=== PATIENT | female | born 1975 | race African-American/Black ===

== ENCOUNTER 2019-07-28 02:59 | Inpatient (IN) | payer MEDICARE, MEDICAID ==
[2019-07-28] VITALS: BP 108/58
[~2019-07-28] VITALS: Ht 175.3 cm; Wt 128.4 kg
[2019-07-28] MEDS ORDERED: ONDANSETRON HCL 4MG/2ML INJ IV STA (04:06)
[2019-07-28] MEDS ORDERED: MORPHINE SULFATE 4 MG/ML CPJ (NOT FOR IM USE) IV STA (04:06)
[2019-07-28] MEDS ORDERED: NITROGLYCERIN OINT 1GM/INCH UDPKT TD ONE (04:15)
[2019-07-28] MEDS ORDERED: ASPIRIN 81MG TABLET PO ONE (04:15)
[2019-07-28 04:40] LABS: BASOPHILS % 1.3 % (0.0-2.0); EOSINOPHILS % 4.4 % (0.0-5.0); HEMATOCRIT. 37.2 % (36.0-48.0); HEMOGLOBIN. 12.5 g/dL (12.0-16.0); LYMPHOCYTES % 36.3 % (20.0-50.0); MEAN CORPUSCULAR HEMOGLOBIN 29.6 pg (28.0-32.0); MEAN CORPUSCULAR VOLUME 87.7 fL (81.0-99.0); MEAN PLATELET VOLUME 7.5 fl (7.4-10.4); MONOCYTES % 8.6 % (2.0-8.0); NEUTROPHILS % 49.4 % (40.0-76.0); PLATELET 256 x1000/uL (130-400); RED BLOOD CELL COUNT 4.24 mill/uL (4.2-5.4); RED CELL DISTRIBUTION WIDTH 14.5 % (11.6-14.6)
[2019-07-28 04:47] LABS: CHLORIDE 109 mEq/L (98-107)
[2019-07-28] MEDS ORDERED: NITROGLYCERIN 0.4MG TABLET SL SL PRN (09:00)
[2019-07-28] MEDS ORDERED: ACETAMINOPHEN 325MG TABLET PO PRN (09:00)
[2019-07-28] MEDS ORDERED: ONDANSETRON HCL 4MG/2ML INJ IV PRN (09:00)
[2019-07-28] MEDS ORDERED: IOHEXOL-350 100 ML BOTTLE ONE (09:05)
[2019-07-28 09:28] LABS: CLARITY URINE CLEAR (CLEAR); COLOR URINE YELLOW (YELLOW); KETONES URINE NEGATIVE (NEGATIVE); LEUKOCYTE ESTERASE URINE NEGATIVE (NEGATIVE); NITRITE URINE NEGATIVE (NEGATIVE); OCCULT BLOOD URINE NEGATIVE (NEGATIVE); PH URINE 5.5 (4.5-8.0); PROTEIN URINE NEGATIVE (NEGATIVE); SPECIFIC GRAVITY URINE 1.038 (1.005-1.030); UROBILINOGEN URINE 0.2 E.U./dL (0.2-1.0)
[2019-07-28 09:42] LABS: LDL CHOLESTEROL 122 mg/dL (5-100)
[2019-07-28 09:43] LABS: HDL CHOLESTEROL 36 mg/dL (40-59)
[2019-07-28 09:59] LABS: *AMPHETAMINES SCREEN URINE NEGATIVE (NEGATIVE); *BARBITURATES SCREEN URINE NEGATIVE (NEGATIVE); *BENZODIAZEPINES SCREEN URINE NEGATIVE (NEGATIVE); *COCAINE SCREEN URINE NEGATIVE (NEGATIVE); METHADONE URINE SCREEN NEGATIVE (NEGATIVE)
[2019-07-28 10:00] LABS: CANNABINOID URINE SCREEN NEGATIVE (NEGATIVE); PHENCYCLIDINE URINE SCREEN NEGATIVE (NEGATIVE)
[2019-07-28 10:10] LABS: OPIATES URINE SCREEN PRESUMTIVE POSITIVE (NEGATIVE)
[2019-07-28 11:18] VITALS: BP 150/91
[2019-07-28 11:20] VITALS: BP 150/91
[2019-07-28] MEDS ORDERED: ASPIRIN 81MG TABLET PO SCH (12:00)
[2019-07-28] MEDS ORDERED: AMLODIPINE 5MG TABLET PO SCH (12:00)
[2019-07-28] MEDS ORDERED: ISOS5TAB4 MT (12:14)
[2019-07-28] MEDS ORDERED: ENAL5TAB MT (12:14)
[2019-07-28] MEDS ORDERED: HYDR-4134 MT (12:14)
[2019-07-28] MEDS ORDERED: ASPI-1160 MT (12:16)
[2019-07-28] MEDS ORDERED: CARV3.1242 MT (12:16)
[2019-07-28] MEDS ORDERED: FURO-152 MT (12:17)
[2019-07-28 15:19] VITALS: BP 157/92
[2019-07-28] MEDS ORDERED: FUROSEMIDE 20MG TABLET PO PRN (16:15)
[2019-07-28 17:50] VITALS: BP 163/100
[2019-07-28] MEDS: HYDRALAZINE HCL 25MG TABLET PO SCH (18:07)
[2019-07-28] MEDS: CLONIDINE 0.1MG TABLET PO PRN (18:08)
[2019-07-28 20:00] VITALS: BP 129/86
[2019-07-28] MEDS: CARVEDILOL 3.125 MG TABLET PO SCH (20:19)
[2019-07-28] MEDS: ISOSORBIDE DINITRATE 20MG TABLET PO SCH (20:20)
[2019-07-28] MEDS: KETOROLAC 30MG/ML VIAL IV PRN (20:27)
[2019-07-28] MEDS ORDERED: METOPROLOL TARTRATE 25MG TABLET PO SCH (21:00)
[2019-07-28] MEDS ORDERED: ATORVASTATIN CALCIUM 20MG TABLET PO SCH (21:00)
[2019-07-29] VITALS: BP 108/58
[2019-07-29 04:00] VITALS: BP 98/54
[2019-07-29] MEDS: KETOROLAC 30MG/ML VIAL IV PRN (06:45)
[2019-07-29 07:23] LABS: CHLORIDE 109 mEq/L (98-107)
[2019-07-29 07:32] LABS: BASOPHILS % 0.5 % (0.0-2.0); EOSINOPHILS % 4.7 % (0.0-5.0); HEMATOCRIT. 34.4 % (36.0-48.0); HEMOGLOBIN. 11.6 g/dL (12.0-16.0); LYMPHOCYTES % 37.4 % (20.0-50.0); MEAN CORPUSCULAR HEMOGLOBIN 29.3 pg (28.0-32.0); MEAN CORPUSCULAR VOLUME 87.3 fL (81.0-99.0); MEAN PLATELET VOLUME 7.3 fl (7.4-10.4); MONOCYTES % 9.9 % (2.0-8.0); NEUTROPHILS % 47.5 % (40.0-76.0); PLATELET 261 x1000/uL (130-400); RED BLOOD CELL COUNT 3.94 mill/uL (4.2-5.4); RED CELL DISTRIBUTION WIDTH 14.8 % (11.6-14.6)
[2019-07-29 07:32] LABS: LDL CHOLESTEROL 110 mg/dL (5-100)
[2019-07-29 07:34] LABS: CREATINE KINASE 123 IU/L (26-192)
[2019-07-29 07:35] LABS: HDL CHOLESTEROL 34 mg/dL (40-59)
[2019-07-29 07:42] LABS: CREATINE KINASE MB FRACTION < 1.0 ng/mL (0.5-3.6)
[2019-07-29] MEDS ORDERED: HYDROCODONE/ACETAMINOPHEN 5/325MG TABLET PO PRN (07:45)
[2019-07-29 07:57] VITALS: BP 137/67
[2019-07-29] MEDS: HYDRALAZINE HCL 25MG TABLET PO SCH (07:58)
[2019-07-29] MEDS: CARVEDILOL 3.125 MG TABLET PO SCH (07:59)
[2019-07-29] MEDS: ISOSORBIDE DINITRATE 20MG TABLET PO SCH (07:59)
[2019-07-29] MEDS ORDERED: ASPIRIN 81MG TABLET PO SCH (09:00)
[2019-07-29] MEDS ORDERED: ENALAPRIL 5MG TABLET PO SCH (09:00)
[2019-07-29] MEDS: CLONIDINE 0.1MG TABLET PO PRN (14:28)
[2019-07-29 14:31] VITALS: BP 160/80
== END 2019-07-29 15:25 | disposition home or self-care (01) | DRG 313 ==
LOC: ER 03:18 → EDBEDREQTM 05:22 → EDBEDREQ 05:22 → 5WST 05:54 → EDBEDREQ 06:01 → ENRESERV 10:39 → CANRESERV 10:39 → ENRESERV 10:47
PROVIDERS: ADMIT Internal Medicine; ATTEND Internal Medicine
DX: R07.89 Other chest pain (principal); I50.22 Chronic systolic (congestive) heart failure; I42.9 Cardiomyopathy, unspecified; Z68.41 Body mass index [BMI] 40.0-44.9, adult; J44.9 Chronic obstructive pulmonary disease, unspecified; E87.8 Other disorders of electrolyte and fluid balance, not elsewhere classified; K76.0 Fatty (change of) liver, not elsewhere classified; E66.9 Obesity, unspecified; E78.5 Hyperlipidemia, unspecified; I11.0 Hypertensive heart disease with heart failure; Z95.810 Presence of automatic (implantable) cardiac defibrillator; Z87.891 Personal history of nicotine dependence; Z71.3 Dietary counseling and surveillance; Z79.899 Other long term (current) drug therapy; Z79.82 Long term (current) use of aspirin
CPT/HCPCS: 36415; 71045; 71275; 80048; 80061; 80305; 81003; 82550; 82553; 83735; 83880; 84443; 84484; 85379; 93005; 93306; 99285; J1885; J2270; J2405; Q9967